=== PATIENT | male | born 1980 | race African-American/Black ===

== ENCOUNTER 2023-09-29 14:02 | Emergency (ER) | payer BC ==
[~2023-09-29] VITALS: Ht 172.7 cm; Wt 79.0 kg
[2023-09-29 14:08] VITALS: O2SAT 96
[2023-09-29 15:01] LABS: HEMATOCRIT. 43.4 % (42.0-52.0); HEMOGLOBIN. 14.7 g/dL (14.0-18.0); MEAN CORPUSCULAR HEMOGLOBIN 32.6 pg (28.0-32.0); MEAN CORPUSCULAR HGB CONC 33.9 g/dL (31.0-37.0); MEAN CORPUSCULAR VOLUME 96.2 fL (80.0-94.0); PLATELET 378 x1000/uL (130-400); RED BLOOD CELL COUNT 4.51 mill/uL (4.7-6.1); RED CELL DISTRIBUTION WIDTH 13.8 % (11.6-14.6); WHITE BLOOD COUNT 4.1 x1000/uL (4.5-11.0)
[2023-09-29 15:04] LABS: DIFFERENTIAL COMMENT 1
[2023-09-29 15:18] LABS: ALANINE AMINOTRANSFERASE 14 IU/L (10-49); ASPARTATE AMINOTRANSFERASE 19 IU/L (<34); BILIRUBIN TOTAL 0.6 mg/dL (0.1-1.0); CALCIUM 9.7 mg/dL (8.7-10.4); CARBON DIOXIDE 29 mEq/L (21-32); CHLORIDE 105 mEq/L (98-107); CREATININE 1.1 mg/dL (0.6-1.3); GLUCOSE 93 mg/dL (70-105); POTASSIUM 3.5 mEq/L (3.5-5.1); PROTEIN TOTAL 8.2 g/dL (6.0-8.3); SODIUM 141 mEq/L (136-145); UREA NITROGEN BLOOD 17 mg/dL (9-23)
[2023-09-29 15:56] LABS: PLATELET ESTIMATE NORMAL
[2023-09-29] MEDS ORDERED: ONDA4TAB50 MT (17:13)
[2023-09-29 17:20] LABS: CLARITY URINE CLEAR (CLEAR); COLOR URINE YELLOW (YELLOW); GLUCOSE URINE NEGATIVE (NEGATIVE); KETONES URINE TRACE (NEGATIVE); LEUKOCYTE ESTERASE URINE NEGATIVE (NEGATIVE); NITRITE URINE NEGATIVE (NEGATIVE); OCCULT BLOOD URINE NEGATIVE (NEGATIVE); PH URINE 5.5 (4.5-8.0); PROTEIN URINE 1+ (NEGATIVE)
[2023-09-29 17:40] LABS: BACTERIA URINE NONE SEEN; CALCIUM OXALATE CRYSTALS URINE 1+ /lpf; RBC URINE 0-2 /hpf (0-2); SQUAMOUS EPITHELIAL CELL URINE NONE SEEN /lpf (RARE/1+); WBC URINE NONE SEEN /hpf (0-2)
[2023-09-29] MEDS: ONDANSETRON 4MG ODT PO ONE (18:45)
[2023-09-29] MEDS: KETOROLAC 60MG/2ML VIAL IM ONE (18:45)
[2023-09-29 19:11] VITALS: BP 108/70; PULSE 87; RESP 15; TEMP 98.1
== END 2023-09-29 21:31 | disposition home or self-care (01) ==
LOC: ER 14:57
DX: K52.9 Noninfective gastroenteritis and colitis, unspecified (principal)
CPT/HCPCS: 80053; 81003; 83690; 85025; 36415; 96372; 99283; Q0162; J1885; Z7610 ×2